=== PATIENT | female | born 1970 | race Caucasian/White ===

== ENCOUNTER → 2018-11-13 16:04 | Outpatient (CLI) | payer OTHER, SELFPAY ==
--- NOTE | 2018-11-13 | DI.RAD.S_ITS ---
PROCEDURE: XR KNEE RT 3V INDICATIONS: INTERMITTENT LATERAL LOWER RIGHT EXTREMITY PAIN X 6 MONTHS TECHNIQUE: 3 views of the knee were acquired. COMPARISON: None. FINDINGS: Bones: No fractures or dislocations. No suspicious bony lesions. Mild degenerative joint disease at the patellofemoral joint with small osteophytes. Soft tissues: No joint effusion. No suspicious soft tissue calcifications. IMPRESSION: Mild degenerative joint disease. Dictated by: Xander Delgado M.D. on 11/13/2018 at 17:06 Approved by: Xander Delgado M.D. on 11/13/2018 at 17:06
--- NOTE | 2018-11-13 | DI.RAD.S_ITS ---
PROCEDURE: XR HIP W PEL IF DONE RT 2V INDICATIONS: INTERMITTENT LATERAL LOWER RIGHT EXTREMITY PAIN X 6 MONTHS TECHNIQUE: AP and lateral views of the hip were acquired. COMPARISON: None. FINDINGS: Bones: No fractures or dislocations. No suspicious bony lesions. The visualized pelvic ring appears intact. Small rounded calcified joint bodies measuring up to 6 mm in size are identified in the superior lateral aspect of the right hip joint. Soft tissues: Rounded calcified pelvic phleboliths noted. IMPRESSION: No acute osseous abnormality of the right hip. Small rounded calcified joint bodies noted in the superior right hip joint. Dictated by: Cr Flor M.D. on 11/13/2018 at 17:18 Approved by: Cr Flor M.D. on 11/13/2018 at 17:22
== END ==
PROVIDERS: Family Provider Nurse Practitioner Family; Visit Provider Nurse Practitioner Family
DX: M79.604 Pain in right leg (principal); M17.11 Unilateral primary osteoarthritis, right knee; M24.051 Loose body in right hip
CPT/HCPCS: 73502; 73562

== ENCOUNTER → 2018-11-15 15:44 | Outpatient (CLI) | payer OTHER, SELFPAY ==
[2018-11-15 16:26] LABS: Influenza A and B by PCR Rapid Negative (Negative)
== END ==
PROVIDERS: Family Provider Nurse Practitioner Family; Visit Provider Physician Assistant
DX: R53.83 Other fatigue (principal)
CPT/HCPCS: 87400

== ENCOUNTER → 2018-11-15 16:44 | Outpatient (CLI) | payer OTHER, SELFPAY ==
[2018-11-15 17:34] LABS: Hematocrit 42.6 % (36-46); Hemoglobin 14.2 g/dL (12.0-16.0); Mean Corpuscular HGB Conc 33.3 % (30-36); Mean Corpuscular Hemoglobin 29.4 PG (26-34); Mean Corpuscular Volume 88.3 fL (80-100); Platelet Count 394 X10^3/uL (150-400); Red Blood Cell Count 4.83 X10^6/uL (4.0-5.2); Red Cell Distribution Width 13.8 % (11.6-14.8); White Blood Cell Count 9.3 X10^3/uL (4.5-11.0)
[2018-11-15 17:45] LABS: Alanine Aminotransferase 27 IU/L (9-52); Albumin 4.7 g/dL (3.5-5.0); Albumin Globulin Ratio 1.5 (1.0-2.8); Alkaline Phosphatase 60 U/L (38-126); Aspartate Aminotransferase 23 IU/L (14-36); BUN Creatinine Ratio 25.7 (6-22); Bilirubin Total 0.2 mg/dL (0.2-1.3); Blood Urea Nitrogen 18 mg/dL (7-17); Calcium 9.3 mg/dL (8.4-10.2); Carbon Dioxide 26 mmol/L (22-32); Chloride 103 mmol/L (98-107); Creatine Kinase 26 U/L (30-135); Estimated Glomerular Filt Rate > 60.0 mL/min (>60); Globulin 3.1 g/dL (1.7-4.1); Glucose 86 mg/dL (70-100); HEMOLYSIS < 15 (0-50); Potassium 4.3 mmol/L (3.4-5.1); Sodium 139 mmol/L (137-145); Total Protein 7.8 g/dL (6.3-8.2)
[2018-11-15 17:57] LABS: Troponin I < 0.012 ng/mL (0.01-0.034)
[2018-11-15 18:35] LABS: Thyroid Stimulating Hormone 1.41 uIU/mL (0.47-4.68)
== END ==
PROVIDERS: Visit Provider Physician Assistant
DX: R53.83 Other fatigue (principal)
CPT/HCPCS: 36415; 80053; 82550; 84443; 84484; 85025; 87400

== ENCOUNTER → 2020-12-23 08:06 | Outpatient (CLI) | payer OTHER, SELFPAY ==
[2020-12-23 08:34] LABS: COVID19 -Nasal RAPID Negative (Negative)
== END ==
PROVIDERS: Visit Provider Physician Assistant
DX: J39.8 Other specified diseases of upper respiratory tract (principal); Z20.822 Contact with and (suspected) exposure to COVID-19
CPT/HCPCS: 87635

== ENCOUNTER → 2021-03-08 10:59 | Outpatient (CLI) | payer OTHER, SELFPAY ==
--- NOTE | 2021-03-08 | DI.RAD.S_ITS ---
PROCEDURE: XR DEXA AXIAL SKELETON INDICATIONS: Asymptomatic menopausal state COMPARISON: None. FINDINGS: This blank DEXA report has been sent in error by the PACS system. The correct and complete report will be forthcoming in 1-2 days. Thank you for your patience and understanding. Dictated by: Anila Zuluaga MD, PhD on 03/08/2021 at 11:29 Approved by: Anila Zuluaga MD, PhD on 03/08/2021 at 11:29
== END ==
PROVIDERS: PCP Physician Assistant; Referring Provider Physician Assistant; Visit Provider Physician Assistant
DX: Z78.0 Asymptomatic menopausal state (principal); Z90.722 Acquired absence of ovaries, bilateral; Z87.891 Personal history of nicotine dependence
CPT/HCPCS: 77080

== ENCOUNTER → 2021-12-05 11:03 | Outpatient (CLI) | payer OTHER, SELFPAY ==
--- NOTE | 2021-12-05 11:04 | DI.MRI.S_ITS ---
PROCEDURE: MR ANKLE RT WO CON INDICATIONS: Pain in right ankle and joints of right foot TECHNIQUE: Noncontrast sagittal T1 spin echo and T2 fast spin echo with fat saturation, axial proton density fast spin echo and T2 fast spin echo with fat saturation, coronal T1 spin echo and T2 fast spin echo with fat saturation through the ankle/hindfoot. COMPARISON: None. FINDINGS: Image quality: Excellent. Bones and joints: No bone marrow contusions or fractures. Well-defined plantar and dorsal calcaneal enthesophytes are seen. No hindfoot coalitions. No osteochondral injuries of the talar dome. Small tibiotalar and subtalar joint effusion is seen, no gross loose bodies. Medial structures: The posterior tibialis is mildly thickened with small amount of fluid distending tendon sheath. The flexor digitorum longus, and flexor hallucis longus tendons are intact. The posterior tibial neurovascular bundle appears normal within the tarsal tunnel, without extrinsic mass effect. The deep layer (anterior and posterior tibiotalar ligaments) and superficial layer (tibionavicular, tibiospring, and tibiocalcaneal ligaments) of the deltoid ligament appear normal. The spring ligament components (superomedial calcaneonavicular, medioplantar oblique calcaneonavicular, and inferoplantar longitudinal ligaments) are intact. Lateral structures: The anterior talofibular, calcaneofibular, and posterior talofibular ligaments appear mildly thickened with intrasubstance T2 hyperintense signal. More superiorly, the anterior and posterior tibiofibular ligaments appear intact, as is the intermalleolar ligament. The tibiofibular syndesmosis is normal in width at 2 mm or less. The peroneus longus and brevis tendons are also thickened along mid to distal calcaneus and calcaneocuboid joint. Adjacent bony peroneal tubercle and retrotrochlear prominence are normal in size. The sinus tarsi demonstrates normal fatty signal, without edema, fibrosis, or cyst formation. Visualized sinus tarsi components (cervical ligament, interosseous talocalcaneal ligament, roots of the inferior extensor retinaculum) appear normal. The calcaneonavicular and calcaneocuboid components of the bifurcate ligament appear intact. The dorsal calcaneocuboid ligament appears intact. Anterior structures: The tibialis anterior, extensor hallucis longus, and extensor digitorum longus tendons appear intact. The dorsal talonavicular ligament appears intact. Posterior and plantar structures: Achilles tendon is thickened with intrasubstance T2 hyperintense signal at its posterior calcaneal insertion. Thickened medial band of plantar fascia at its calcaneal insertion is also noted. No abductor digiti quinti muscle atrophy to suggest Castanon neuropathy. IMPRESSION: 1. Well-defined plantar and dorsal calcaneal enthesophytes with suggestion of tendinosis and low-grade intrasubstance partial-thickness tear involving distal Achilles tendon at its posterior calcaneal insertion. No full-thickness Achilles tendon rupture. Mildly thickened medial band of plantar fascia suggestive of low-grade plantar fasciitis. 2. No marrow edema. No fracture or dislocation. No osteochondral lesion of talar dome. 3. Low-grade tenosynovitis involving posterior tibialis tendon at the level of distal talus/talonavicular joint. Mild peroneus tendinosis as above. 4. Suggestion of low-grade sprain/intrasubstance partial-thickness tear involving anterior and posterior talofibular ligaments and calcaneofibular ligament. Medial ankle ligaments are intact. Dictated by: Jack Oliva M.D. on 12/05/2021 at 12:43 Approved by: Jack Oliva M.D. on 12/05/2021 at 12:46
== END ==
PROVIDERS: PCP Physician Assistant; Referring Provider Orthopaedic Surgery Foot and Ankle Surgery; Visit Provider Orthopaedic Surgery Foot and Ankle Surgery
DX: S86.011A Strain of right Achilles tendon, initial encounter (principal); M77.31 Calcaneal spur, right foot; M65.871 Other synovitis and tenosynovitis, right ankle and foot; M25.571 Pain in right ankle and joints of right foot
CPT/HCPCS: 73721

== ENCOUNTER → 2022-07-10 13:12 | Outpatient (ROUT) | payer OTHER, SELFPAY ==
[2022-07-10 13:34] LABS: COVID19 -Nasal RAPID Negative (Negative)
== END ==
PROVIDERS: PCP Physician Assistant; Visit Provider Family Medicine
DX: Z20.822 Contact with and (suspected) exposure to COVID-19 (principal)
CPT/HCPCS: 87635

== ENCOUNTER → 2022-08-10 10:38 | Outpatient (CLI) | payer OTHER, SELFPAY ==
[2022-08-10 12:09] LABS: Add Manual Diff / Slide Review NO; Basophils Absolute Auto 100 /uL (0-100); Eosinophils Absolute Auto 100 /uL (0-450); Hematocrit 37.7 % (36-46); Hemoglobin 12.7 g/dL (12.0-16.0); Lymphocytes Absolute Auto 1800 /uL (1100-4500); Mean Corpuscular HGB Conc 33.6 % (30-36); Mean Corpuscular Hemoglobin 28.4 PG (26-34); Mean Corpuscular Volume 84.7 fL (80-100); Monocytes Absolute Auto 400 /uL (0-900); Monocytes Percent Auto 6.2 % (3-14); Neutrophils Absolute Auto 3600 /uL (1500-7000); Neutrophils Percent Auto 60.8 % (50-75); Platelet Count 358 X10^3/uL (150-400); Red Blood Cell Count 4.45 X10^6/uL (4.0-5.2); Red Cell Distribution Width 13.1 % (11.6-14.8); White Blood Cell Count 5.9 X10^3/uL (4.5-11.0)
[2022-08-10 12:48] LABS: Alanine Aminotransferase 23 IU/L (<35); Albumin Globulin Ratio 1.3 (1.0-2.8); Alkaline Phosphatase 59 U/L (38-126); Aspartate Aminotransferase 25 IU/L (14-36); BUN Creatinine Ratio 25.4 (6-22); Bilirubin Total 0.6 mg/dL (0.2-1.3); Blood Urea Nitrogen 15 mg/dL (7-17); Carbon Dioxide 25 mmol/L (22-32); Chloride 102 mmol/L (98-107); Cholesterol 168 mg/dL (140-199); Estimated Glomerular Filt Rate > 60 mL/min (>60); Globulin 3.1 g/dL (1.7-4.1); Glucose 85 mg/dL (70-100); HDL Cholesterol 58 mg/dL (40-60); HEMOLYSIS < 15 (0-50); LDL Cholesterol Calculated 75 mg/dL (<100); Potassium 4.2 mmol/L (3.4-5.1); Sodium 137 mmol/L (137-145); Total Protein 7.1 g/dL (6.3-8.2); Triglycerides 177 mg/dL (35-150)
[2022-08-10 13:21] LABS: TSH w/ Reflex to FT4 2.17 uIU/mL (0.47-4.68)
[2022-08-10 13:56] LABS: Folate 7.7 ng/mL (2.76-20.0); Vitamin B12 422 pg/mL (239-931)
[2022-08-10 17:26] LABS: Vitamin D 25 Hydroxy (D3) 14.8 ng/mL (30.0-100.0)
== END ==
PROVIDERS: PCP Family Medicine; Referring Provider Family Medicine; Visit Provider Family Medicine
DX: E56.9 Vitamin deficiency, unspecified (principal); F33.8 Other recurrent depressive disorders; R19.5 Other fecal abnormalities; R53.83 Other fatigue; R63.5 Abnormal weight gain; Z13.220 Encounter for screening for lipoid disorders; Z13.6 Encounter for screening for cardiovascular disorders; Z79.899 Other long term (current) drug therapy
CPT/HCPCS: 36415; 80053; 80061; 82306; 82607; 82746; 84443; 85025

== ENCOUNTER 2023-03-28 19:40 | Emergency (ER) | payer OTHER, SELFPAY ==
[2023-03-28 19:56] VITALS: BP 118/69; PULSE 82; RESP 18; TEMP 36.4; O2SAT 97; BMI 33.0
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
[2023-03-28 21:28] VITALS: BP 127/62; PULSE 80; RESP 16; O2SAT 97
[2023-03-28] MEDS: cephALEXin 250 MG CAPSULE 500 MG PO (21:44)
== END 2023-03-28 21:49 | disposition home or self-care (01) ==
PROVIDERS: Emergency Provider Emergency Medicine; PCP Family Medicine
DX: L03.114 Cellulitis of left upper limb (principal)
CPT/HCPCS: 99283

== ENCOUNTER 2024-01-31 12:16 | Day surgery (SDC) | payer OTHER, SELFPAY ==
[2024-01-31 12:57] VITALS: BP 119/75; PULSE 78; RESP 18; TEMP 36.5; O2SAT 99
[2024-01-31] MEDS: LACTATED RINGERS 1,000 ML 42 ML IV (12:59)
--- NOTE | 2024-01-31 13:30 | PM.HP.1 ---
History of Present Illness History of Present Illness Date Patient Seen: 01/31/24 Time Patient Seen: 13:30 Chief complaint: Colonoscopy Narrative: 53-year-old woman with rectal bleeding here for diagnostic colonoscopy possible hemorrhoidal banding. No interval change in health. [facility] Surgical History H/O Achilles tendon repair H/O: hysterectomy History of tonsillectomy Family History Father Heart disease Grandfather Cancer Grandmother No problems noted. Social History marital status: unmarried,single household members: none lives independently: Yes Smoking Status: Former smoker alcohol intake: current substance use type: does not use Meds Home Medications and Allergies Home Medications Medication Instructions Recorded Confirmed Type trazodone 100 mg tablet 100 mg PO BEDTIME 12/20/23 01/31/24 History phentermine 37.5 mg tablet 37.5 mg PO DAILY 01/31/24 01/31/24 History semaglutide 0.25 mg or 0.5 mg (2 0.25 mg SUBCUT QWEEK 01/31/24 01/31/24 History mg/1.5 mL) subcutaneous pen injector Allergies Allergy/AdvReac Type Severity Reaction Status Date / Time bee venom protein (honey bee) Allergy Severe Difficulty Verified 01/31/24 12:37 Breathing erythromycin base Allergy Severe Difficulty Verified 01/31/24 12:37 Breathing Penicillins Allergy Severe Difficulty Verified 01/31/24 12:37 Breathing Tetracyclines Allergy Severe Difficulty Verified 01/31/24 12:37 Breathing Exam Vital Signs (past 8 hours): - 01/31/24 12:57 Temperature 97.7 F Pulse Rate 78 Respiratory Rate 18 Blood Pressure 119/75 Pulse Oximetry 99 Oxygen Delivery Method Room Air Oxygen Delivery Method Room Air Narrative Exam Narrative: General adult woman alert oriented no acute distress Chest nonlabored respiration Extremities warm well perfused Assessment & Plan Assessment and plan (1) Rectal bleeding: Status: Acute Assessment & Plan narrative: 53-year-old woman with intermittent rectal bleeding here for diagnostic colonoscopy possible hemorrhoidal banding. Overview of procedure discussed. Operative risks including hemorrhage, missed diagnosis, intestinal injury were discussed. Questions have been answered she is in agreement with this plan.
--- NOTE | 2024-01-31 13:32 | P.OP.COLON_ITS ---
Operative Date/Time/Diagnoses Date of procedure: 01/31/24 Time of procedure: 14:03 Pre-op diagnosis: Rectal bleeding Post-op diagnosis: other (Internal hemorrhoids) Procedure & Clinicians Study performed: Diagnostic colonoscopy and hemorrhoidal banding Same procedure as scheduled: Yes Indications: 53-year-old woman with rectal bleeding here for diagnostic colonoscopy possible hemorrhoidal banding Surgeon: Lee Trinidad Procedure Notes Procedure in detail: The history and physical was performed/updated and the patient is ASA class is 2. The procedure was discussed in detail with the patient. Potential risks complications including infection, bleeding, missed diagnosis, perforation, need for surgery, and were explained. Their questions were answered and informed consent was obtained. Patient was brought to the procedure room and placed standard monitoring equipment. The patient's vital signs were monitored continuously throughout the entire procedure. Prior to starting time-out was performed. The patient was placed in the left lateral recumbent position. Procedural sedation was administered by anesthesia. Examination began with a thorough inspection of the perianal area there was no evidence of fissures, fistulae, external hemorrhoids or cutaneous malignancy. The colonoscopy scope was then placed into the anal canal and was advanced to the cecum, which was identified by the ileocecal valve, the appendiceal orifice and the confluence of the taenia. The scope was then slowly withdrawn examining colon thoroughly in all directions, irrigating it of any residual stool. The scope was retroflexed within the rectum The patient tolerated the procedure well. They will be discharged once criteria are met. The prep was of good/excellent quality. The withdrawl time was 6 minutes. FINDINGS * Internal hemorrhoids * No polyps or masses Following completion of the colonoscopy we proceeded with hemorrhoidal banding. Anoscope was placed. The right anterior and posterior pedicles were grade 2. Each was grasped using suction and then doubly ligated at its base. She tolerated the procedure well. Specimen(s): none sent Impression: Internal hemorrhoids Post-procedure Recommendations: Colonoscopy in 10 years and High fiber diet Plan for aftercare: Sitz bath 2-3 times daily for the next week Tylenol ibuprofen as needed for pain Disposition: same day surgery
[2024-01-31 13:59] VITALS: BP 130/75; PULSE 75; RESP 16; TEMP 36.3; O2SAT 97
[2024-01-31 14:04] VITALS: BP 134/69; PULSE 74; PULSE 77; RESP 16; RESP 18; O2SAT 96; O2SAT 97
[2024-01-31] MEDS: KETOROLAC 30 MG/ML VIAL IV (14:07)
[2024-01-31 14:09] VITALS: BP 130/89; PULSE 71; RESP 14; O2SAT 95
[2024-01-31 14:14] VITALS: BP 109/70; PULSE 67; RESP 16; O2SAT 97
[2024-01-31] MEDS: ACETAMINOPHEN IV 1,000 MG/100 ML VIAL 400 MG IV (14:17)
== END 2024-01-31 14:50 | disposition home or self-care (01) ==
PROVIDERS: PCP Registered Nurse; Referring Provider Surgery; Visit Provider Surgery
PROC: 0DJD8ZZ Inspection of Lower Intestinal Tract, Via Natural or Artificial Opening Endoscopic (ICD-10-PCS; CPT 45378; principal; 2024-01-31 13:15)
DX: K62.5 Hemorrhage of anus and rectum (principal); K64.1 Second degree hemorrhoids
CPT/HCPCS: 45378; 46221; J0136; J1885; J2704